=== PATIENT | female | born 1940 | race Caucasian/White ===

== ENCOUNTER 2020-08-10 16:05 | Outpatient (CLI) | payer MEDICARE, SELFPAY ==
--- NOTE | ~2020-08-10 | XR_ITS ---
EXAMINATION: XR hip RT min 3V w AP pelvis INDICATION: Right hip pain TECHNIQUE: AP view the pelvis and three views of the right hip are obtained. COMPARISON: None available FINDINGS: There is advanced osteoarthritis of both hips. No fracture is identified. Bone alignment is normal. The soft tissues are unremarkable. IMPRESSION: 1. Advanced osteoarthritis of the hips. Reviewed, dictated and finalized at location A. 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
--- NOTE | ~2020-08-10 | XR_ITS ---
EXAMINATION: XR lumbar spine 2-3V DATE: 08/10/2020 16:31 INDICATION: Low back pain TECHNIQUE: Anteroposterior and lateral views of the lumbar spine, and cone-down lateral view of the l umbosacral junction were obtained. COMPARISON: None. FINDINGS: There is dextrocurvature of the lumbar spine. No fracture is identified. The vertebral body heights are maintained. There are 4 mm of anterolisthesis of L4 on L5. Bone alignment is otherwise n ormal. There is severe loss of intervertebral disc space height throughout the lumbar spine. No fract ure is identified. Calcified atherosclerosis is noted. There is moderate to severe hip osteoarthritis . IMPRESSION: 1. Severe lumbar spondylosis without acute findings. Reviewed, dictated and finalized at location A. 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
== END 2020-08-10 16:06 | disposition home or self-care (01) ==
PROVIDERS: PCP Family Medicine; Visit Provider Physician Assistant
DX: M54.5 Low back pain (principal); M16.0 Bilateral primary osteoarthritis of hip; M47.816 Spondylosis without myelopathy or radiculopathy, lumbar region
CPT/HCPCS: 72100; 73502

== ENCOUNTER 2020-12-28 12:21 | Outpatient (CLI) | payer MEDICARE, SELFPAY ==
[2020-12-28 12:54] LABS: Basophils Percent Auto 0.3 % (0.2-1.2); Eosinophils Absolute Auto 0.1 K/mm3 (0-0.3); Eosinophils Percent Auto 1.4 % (0-4.4); Hematocrit 44.4 % (37.0-47.0); Immature Granulocyte Absolute 0.03 K/mm3 (0.00-0.031); Immature Granulocyte Percent A 0.4 % (0-0.5); Lymphocytes Absolute Auto 2.18 K/mm3 (0.9-3.2); Lymphocytes Percent Auto 31.3 % (18.3-44.2); Mean Corpuscular HGB Conc 31.5 g/dl (32-36); Mean Corpuscular Hemoglobin 27.6 pg (26-34); Mean Corpuscular Volume 87.6 fl (80-100); Monocytes Absolute Auto 0.6 K/mm3 (0.1-0.6); Monocytes Percent Auto 8.5 % (2.6-8.5); Neutrophils Absolute Auto 4.1 K/mm3 (1.3-6.7); Neutrophils Percent Auto 58.1 % (45.5-73.1); Platelet Count Result 264 k/mm3 (150-375); Red Blood Count 5.07 M/mm3 (4.2-5.4)
== END 2020-12-28 12:22 | disposition home or self-care (01) ==
PROVIDERS: PCP Family Medicine; Visit Provider Internal Medicine Gastroenterology
DX: R10.9 Unspecified abdominal pain (principal)
CPT/HCPCS: 36415; 85025

== ENCOUNTER 2021-01-10 01:26 | Day surgery (SDC) | payer MEDICARE, SELFPAY ==
[2020-12-29 14:49] VITALS: BMI 22.8
[2021-01-10 10:55] VITALS: BP 171/68; PULSE 85; RESP 16; TEMP 35.8; O2SAT 98; BMI 23.4
--- NOTE | 2021-01-10 11:18 | WPDANESEPPF ---
Anes - Initial Pre Proc Eval Procedure: Operation Date: 01/10/21 11:30 Proposed Procedures p Esophagogastroduodenoscopy - Wale Son MD Date/Time: 01/10/21 11:18 Surgeon: Wale Son MD Pre Op Diagnosis: melena Patient Data Age: 80 Gender: F Height: 1.57 m Weight: 58.1 kg Last Vital Signs Temp 35.8 C L 01/10/21 10:55 Pulse 85 01/10/21 10:55 Resp 16 01/10/21 10:55 BP 171/68 H 01/10/21 10:55 Pulse Ox 98 01/10/21 10:55 Allergies Allergy/AdvReac Type Severity Reaction Status Date / Time iron AdvReac Mild Nausea Verified 01/10/21 11:09 Home Medications Medication Instructions Recorded Confirmed Type aspirin 81 mg tablet,delayed 81 mg PO DAILY 07/07/19 08/13/20 History release lvtidiv-fbbiwcwtk-sfzu tablet tablet PO 07/07/19 08/13/20 History flaxseed oil 1,000 mg capsule 1,000 mg PO DAILY 07/07/19 08/13/20 History montelukast 10 mg tablet 10 mg PO DAILY 07/07/19 08/13/20 History multivitamin 1 tablet PO DAILY 07/07/19 08/13/20 History trazodone 50 mg tablet 50 mg PO TID 07/07/19 08/13/20 History pantoprazole 40 mg tablet,delayed 40 mg PO QAM #90 tablet 04/20/20 08/13/20 Rx release levothyroxine 100 mcg tablet 100 mcg PO DAILY #90 tablet 05/31/20 08/13/20 Rx Patient hx anesthesia problems: none Family hx anesthesia problems: none PMFSH Surgical History Surgical History H/O mastectomy Family History Family History Mother Family history of Alzheimer's disease Father Family history of lung cancer Patient's father is , Onset Age: 85 Other Family history of hypercholesterolemia No family history of cardiovascular disease No family history of hypertension Social History Social History Smoking status: Never smoker Alcohol intake: current Alcohol use details: rarely Substance use: never Substance use type: does not use Living arrangements: with family Spiritual care concerns: No Anes - Eval Final PreProcedure Day of Procedure 01/10/21 11:18 Patient weight: normal Heart: regular rate and rhythm Lungs: clear to auscultation Airway: Mallampati scale class II Neurological: alert and oriented Last oral intake: >/= 8 hours ASA classification: III Emergent: no Anesthetic plan: proceed Anesthesia type and monitoring: general GIVS and standard monitoring Informed Consent: The patient's anesthetic plan and its attendant risks and benefits were discussed with the patient/family/POA. Questions were solicited and answers provided to the satisfaction of the patient/family/POA.
[2021-01-10] MEDS: LACTATED RINGERS 1,000 ML 150 ML IV CONT (11:21)
--- NOTE | 2021-01-10 11:41 | PM.HPGS ---
History of Present Illness History of Present Illness Consent: Risks, benefits, and alternatives have been discussed and questions answered. Patient agrees to proceed with procedure. Chief complaint: melena Narrative: Shruthi Benson is a 80 year old female with melena. She has history of having a large ulcer and when last examined a few years ago it was smaller but not completely healed Review of Systems Review of Systems: All systems reviewed & are unremarkable except as noted in HPI and below PMFSH Surgical History Surgical History H/O mastectomy Family History Family History Mother Family history of Alzheimer's disease Father Family history of lung cancer Patient's father is , Onset Age: 85 Other Family history of hypercholesterolemia No family history of cardiovascular disease No family history of hypertension Social History Social History Smoking status: Never smoker Alcohol intake: current Alcohol use details: rarely Substance use: never Substance use type: does not use Living arrangements: with family Spiritual care concerns: No Meds Home Medications and Allergies Home Medications Medication Instructions Recorded Confirmed Type aspirin 81 mg tablet,delayed 81 mg PO DAILY 07/07/19 08/13/20 History release oacpxtd-vpqmvmxre-eavi tablet tablet PO 07/07/19 08/13/20 History flaxseed oil 1,000 mg capsule 1,000 mg PO DAILY 07/07/19 08/13/20 History montelukast 10 mg tablet 10 mg PO DAILY 07/07/19 08/13/20 History multivitamin 1 tablet PO DAILY 07/07/19 08/13/20 History trazodone 50 mg tablet 50 mg PO TID 07/07/19 08/13/20 History pantoprazole 40 mg tablet,delayed 40 mg PO QAM #90 tablet 04/20/20 08/13/20 Rx release levothyroxine 100 mcg tablet 100 mcg PO DAILY #90 tablet 05/31/20 08/13/20 Rx Allergies Allergy/AdvReac Type Severity Reaction Status Date / Time iron AdvReac Mild Nausea Verified 01/10/21 11:09 Vital Signs Vital Signs - 24 hr 01/10/21 10:55 Temperature 35.8 C L Pulse Rate 85 Respiratory Rate 16 Blood Pressure 171/68 H Pulse Oximetry 98 Exam Const: General: alert Orientation/consciousness: patient oriented x3 Resp: Auscultation: clear to auscultation bilaterally Cardio: Rhythm: regular rhythm GI: GI Palp: Yes Soft to palpation and No Tenderness to palpation present (GI) Neuro: General: patient oriented x3 Assessment and Plan Assessment and plan (1) Melena: Code(s): K92.1 - Melena Status: Acute Assessment and Plan: EGD with possible biopsy or dilatation or cautery.
[2021-01-10 11:55] VITALS: BP 82/54; PULSE 78; RESP 16; O2SAT 98
[2021-01-10 12:05] VITALS: BP 74/39; PULSE 74; RESP 16; O2SAT 100
[2021-01-10 12:13] VITALS: BP 118/44; PULSE 70; RESP 16; O2SAT 100
== END 2021-01-10 12:20 | disposition home or self-care (01) ==
PROVIDERS: PCP Family Medicine; Visit Provider Internal Medicine Gastroenterology
PROC: 0DJ08ZZ Inspection of Upper Intestinal Tract, Via Natural or Artificial Opening Endoscopic (ICD-10-PCS; CPT 43235; principal; 2021-01-10 11:30)
DX: K92.1 Melena (principal); K31.5 Obstruction of duodenum; K22.2 Esophageal obstruction; K21.9 Gastro-esophageal reflux disease without esophagitis; Z79.82 Long term (current) use of aspirin; E03.9 Hypothyroidism, unspecified
CPT/HCPCS: 43239; 88305; J2704; J7120

== ENCOUNTER 2022-03-28 03:45 | Outpatient (CLI) | payer MEDICARE, SELFPAY | END 2022-03-28 03:46 | disposition home or self-care (01) | LOC: ANHGOSHLAB 15:44 | PROVIDERS: PCP Family Medicine; Visit Provider Family Medicine | DX: E78.2 Mixed hyperlipidemia (principal) | CPT/HCPCS: 36415 ==

== ENCOUNTER 2022-11-16 08:59 | Outpatient (CLI) | payer MEDICARE, SELFPAY ==
[2022-11-16 12:55] LABS: Alanine Aminotransferase 18 U/L (6-35); Albumin Level 4.3 g/dL (3.5-5.1); Alkaline Phosphatase 96 U/L (38-126); Anion Gap 5 mmol/L (8-16); Aspartate Amino Transferase 51 U/L (14-36); Bilirubin,Total 0.6 mg/dL (0.2-1.3); Blood Urea Nitrogen 19 mg/dL (7-17); Calcium 9.3 mg/dL (8.4-10.2); Carbon Dioxide 30 mmol/L (22-30); Chloride 106 mmol/L (98-107); Cholesterol 236 mg/dL (0-200); Estimated Glomerular Filt Rate 60; Glucose 103 mg/dL (65-110); HDL Direct 58 mg/dL; Potassium 4.5 mmol/L (3.4-5.0); Sodium 141 mmol/L (137-145); Triglycerides 172 mg/dL (<150)
[2022-11-16 13:06] LABS: LDL Cholesterol Direct 129 mg/dL
[2022-11-16 13:39] LABS: Thyroid Stimulating Hormone Reflex 0.018 uIU/mL (0.465-4.68)
[2022-11-16 17:59] LABS: Free T4 Free Thyroxine Reflex 1.52 ng/dL (0.78-2.19)
[2022-11-16 19:47] LABS: Total Triiodothyronine (T3) 1.52 NG/ML (0.97-1.69)
== END 2022-11-16 09:00 | disposition home or self-care (01) ==
LOC: ANHGOSHLAB 09:00
PROVIDERS: PCP Family Medicine; Visit Provider Family Medicine
DX: E03.9 Hypothyroidism, unspecified (principal); E78.2 Mixed hyperlipidemia; Z13.228 Encounter for screening for other metabolic disorders
CPT/HCPCS: 36415; 80053; 80061; 84439; 84443; 84480

== ENCOUNTER 2023-05-02 13:37 | Emergency (ER) | payer MEDICARE, SELFPAY ==
[2023-05-02 13:49] VITALS: BP 149/79; PULSE 88; RESP 18; TEMP 37; O2SAT 98
--- NOTE | 2023-05-02 13:59 | ED.URI ---
HPI - URI/Sore Throat General Chief Complaint: Upper Respiratory Infection Stated Complaint: Sinus Infection Time Seen by Provider: 05/02/23 14:00 Source: patient and RN notes reviewed Mode of arrival: ambulatory Limitations: no limitations History of Present Illness HPI Narrative: 82-year-old female presents concern for 5-6 day history of sinus congestion, drainage, cough, postnasal drainage, chills, sweats. She reports she has been using Afrin intermittently. She reports her who is currently in a rehab center tested positive for COVID. MD elicited complaint: rhinorrhea and nasal congestion Related Data Home Medications Medication Instructions Recorded Confirmed aspirin 81 mg tablet,delayed 81 mg PO DAILY 07/07/19 05/02/23 release aktjjzc-omupnchfr-tljf tablet 1 tablet PO DAILY 07/07/19 05/02/23 flaxseed oil 1,000 mg capsule 1,000 mg PO DAILY 07/07/19 05/02/23 montelukast 10 mg tablet 10 mg PO DAILY 07/07/19 05/02/23 multivitamin 1 tablet PO DAILY 07/07/19 05/02/23 trazodone 50 mg tablet 50 mg PO TID 07/07/19 05/02/23 bupropion HCl 300 mg 24 hr tablet, 300 mg PO DAILY 05/02/23 05/02/23 extended release levothyroxine 75 mcg tablet 75 mcg PO DAILY 05/02/23 05/02/23 paroxetine HCl 10 mg tablet 10 mg PO DAILY 05/02/23 05/02/23 Allergies Allergy/AdvReac Type Severity Reaction Status Date / Time iron AdvReac Mild Nausea Verified 05/02/23 13:56 Review of Systems Review of Systems: CONSTITUTIONAL: Reports malaise, chills, sweats. Fever. EYES: Denies visual changes, redness, or discharge. ENT: Reports rhinorrhea, congestion CARDIOVASCULAR: Denies chest pain, palpitations, or edema. RESPIRATORY: Reports cough. Denies dyspnea. GASTROINTESTINAL: Denies abdominal pain, nausea, vomiting, diarrhea SKIN: Denies rash or itching. MUSCULOSKELETAL: Denies myalgia. NEUROLOGIC: Reports headache. All systems reviewed & are unremarkable except as noted in HPI and below PMFSH Surgical History Surgical History H/O mastectomy Family History Family History Mother Family history of Alzheimer's disease Father Family history of lung cancer Patient's father is , Onset Age: 85 Other Family history of hypercholesterolemia No family history of cardiovascular disease No family history of hypertension Social History Social History Smoking status: Never smoker Alcohol intake: current Alcohol use details: rarely Substance use: never Substance use type: does not use Lack of Transportation: No Lack of Food: Never True Current Housing: I Have Housing Concerned About Future Housing: No Difficulty Paying Gas/Electric Bills: No Difficulty Paying for Meds: No Currently Unemployed: No Education: Associate Degree Difficulty w/ Childcare or Family Care: No Living arrangements: with family Spiritual care concerns: No Comments At time of signature, agree with nursing past medical, surgical, social and family history. There is no relevant family history pertinent to the presenting complaint Exam Narrative: GENERAL: Well-appearing, well-nourished, and in no acute distress. HEAD: Normocephalic EYES: PERRLA, conjunctivae clear ENT: Nares clear, turbinates edematous and erythematous, clear discharge. Mucous membranes moist. TM pearly pickering with short light reflex bilaterally; no tragal tenderness. Oropharynx not erythematous without lesions. Tonsils not enlarged and without exudate, no drooling, no hoarseness, no trismus, uvula midline. NECK: Supple. No lymphadenopathy CHEST: Clear to auscultation, breath sounds equal. No wheezing, rhonchi, rales, or stridor. No respiratory distress, speaks in full sentences. HEART: Regular rate and rhythm. No murmur heard. SKIN: Warm, dry, no rash. NEURO: Alert and oriented x
== END 2023-05-02 14:24 | disposition home or self-care (01) ==
PROVIDERS: Emergency Provider Nurse Practitioner; PCP Family Medicine
DX: J06.9 Acute upper respiratory infection, unspecified (principal); Z79.899 Other long term (current) drug therapy; Z79.82 Long term (current) use of aspirin; Z20.822 Contact with and (suspected) exposure to COVID-19
CPT/HCPCS: 36415; 84439; 84443; 84480; 87426; 87804; 99213; C9803; G0463

== ENCOUNTER 2023-05-02 14:29 | Outpatient (CLI) | payer MEDICARE, SELFPAY ==
[2023-05-02 20:14] LABS: Free T4 Free Thyroxine Reflex 0.94 ng/dL (0.78-2.19)
[2023-05-02 21:27] LABS: Total Triiodothyronine (T3) 0.99 NG/ML (0.97-1.69)
== END 2023-05-02 14:30 | disposition home or self-care (01) ==
LOC: ANHGOSHLAB 14:31
PROVIDERS: PCP Family Medicine; Visit Provider Family Medicine
DX: E03.9 Hypothyroidism, unspecified (principal); Z13.29 Encounter for screening for other suspected endocrine disorder
CPT/HCPCS: 36415; 84439; 84443; 84480

== ENCOUNTER 2023-08-09 14:22 | Outpatient (CLI) | payer MEDICARE, SELFPAY ==
[2023-08-09 16:37] LABS: Thyroid Stimulating Hormone Reflex < 0.015 uIU/mL (0.465-4.68)
[2023-08-09 18:51] LABS: Total Triiodothyronine (T3) 1.53 NG/ML (0.97-1.69)
== END 2023-08-09 14:23 | disposition home or self-care (01) ==
LOC: ANHGOSHLAB 14:24
PROVIDERS: PCP Family Medicine; Visit Provider Family Medicine
DX: E03.9 Hypothyroidism, unspecified (principal)
CPT/HCPCS: 36415; 84439; 84443; 84480

== ENCOUNTER 2023-12-26 08:36 | Outpatient (CLI) | payer MEDICARE, SELFPAY ==
[2023-12-26 13:05] LABS: Basophils Percent Auto 0.5 % (0.2-1.2); Eosinophils Absolute Auto 0.2 K/mm3 (0-0.3); Eosinophils Percent Auto 3.5 % (0-4.4); Hematocrit 42.2 % (37.0-47.0); Immature Granulocyte Absolute 0.01 K/mm3 (0.00-0.031); Immature Granulocyte Percent A 0.2 % (0-0.5); Lymphocytes Absolute Auto 3.07 K/mm3 (0.9-3.2); Lymphocytes Percent Auto 47.1 % (18.3-44.2); Mean Corpuscular HGB Conc 30.8 g/dl (32-36); Mean Corpuscular Hemoglobin 27.3 pg (26-34); Mean Corpuscular Volume 88.7 fl (80-100); Mean Platelet Volume 11.4 fl (7.4-10.4); Monocytes Absolute Auto 0.6 K/mm3 (0.1-0.6); Neutrophils Absolute Auto 2.6 K/mm3 (1.3-6.7); Neutrophils Percent Auto 39.7 % (45.5-73.1); Platelet Count Result 300 k/mm3 (150-375); Red Blood Count 4.76 M/mm3 (4.2-5.4); Red Cell Distribution Width 14.4 % (11.5-14.5); White Blood Count 6.5 K/mm3 (4.5-10.0)
[2023-12-26 13:11] LABS: Alanine Aminotransferase 20 U/L (6-35); Albumin Level 4.3 g/dL (3.5-5.1); Alkaline Phosphatase 116 U/L (38-126); Anion Gap 7 mmol/L (4-12); Aspartate Amino Transferase 71 U/L (14-36); Bilirubin,Total 0.6 mg/dL (0.2-1.3); Blood Urea Nitrogen 17 mg/dL (7-17); Calcium 9.6 mg/dL (8.4-10.2); Carbon Dioxide 29 mmol/L (22-30); Chloride 104 mmol/L (98-107); Cholesterol 217 mg/dL (0-200); Estimated Glomerular Filt Rate > 60; Glucose 103 mg/dL (65-110); HDL Direct 55 mg/dL; Potassium 4.8 mmol/L (3.4-5.0); Sodium 140 mmol/L (137-145); Triglycerides 173 mg/dL (<150)
[2023-12-26 13:22] LABS: LDL Cholesterol Direct 128 mg/dL
[2023-12-26 13:37] LABS: Free T4 Free Thyroxine 1.82 ng/mL (0.78-2.19); Vitamin D 25 Hydroxy 50.4 ng/mL
[2023-12-26 13:39] LABS: Thyroid Stimulating Hormone < 0.015 uIU/mL (0.465-4.680)
== END 2023-12-26 08:37 | disposition home or self-care (01) ==
PROVIDERS: PCP Family Medicine; Visit Provider Family Medicine
DX: E03.9 Hypothyroidism, unspecified (principal); R53.83 Other fatigue; E78.2 Mixed hyperlipidemia; E55.9 Vitamin D deficiency, unspecified; Z13.228 Encounter for screening for other metabolic disorders
CPT/HCPCS: 36415; 80053; 80061; 82306; 84439; 84443; 85025

== ENCOUNTER 2024-06-19 15:27 | Outpatient (CLI) | payer MEDICARE, SELFPAY ==
[2024-06-19 21:05] LABS: Thyroid Stimulating Hormone 0.646 uIU/mL (0.465-4.680)
== END 2024-06-19 15:28 | disposition home or self-care (01) ==
LOC: ANHGOSHLAB 15:28
PROVIDERS: PCP Family Medicine; Visit Provider Family Medicine
DX: E03.9 Hypothyroidism, unspecified (principal)
CPT/HCPCS: 36415; 84439; 84443

== ENCOUNTER 2025-01-01 10:03 | Outpatient (CLI) | payer MEDICARE, SELFPAY ==
--- OUTSIDE RECORDS SUMMARY | 2025-01-01 10:11 | XMS_ITS | Clinical Summary ---
Author Organization [facility] Address [address] [place] [address] Care Team Providers Care Flat Spring Assembler Name Role Phone Liss Castellano MD Primary Care Provider [phone] Allergies No known active allergies Medications HYDROcodone-a cetaminophen (NORCO) 7.5-325 mg per tablet 0 01/23/20 19 Active levothyroxine (SYNTHROID) 100 mcg tablet 07/31/2016Synthroid, po solid 100 mcg TabletPOdailyCurrent Medication 07/31/[address] (Aciphex) 20 mg EC tablet 07/31/2016Aciphex, po solid 20 mg Tablet, delayed release (enteric coated)POdailyCurrent Medication 07/31/19 17 Active raloxifene (EVISTA) 60 mg tablet 07/31/2016Evista, po solid 60 mg TabletPOdaily as directedCurrent Medication 07/31/19 17 Active Active Problems Problem Noted Date Diagnosed Date History of colon cancer 12/09/2018 History of breast cancer 08/02/2018 Immunizations Immunization Administration Dates Next Due Influenza, Unspecified 02/09/2019,07/31/2016 ZOSTER LIVE 07/31/2016,08/02/2015 Social History Tobacco Use Types Packs/Day Years Used Date Smoking Tobacco: Never Smokeless Tobacco: Never Personal Safety Answer Date Recorded Getting School Help Needed Not on file 08/25 Comments Unknown Sex and Gender Information Value Date Recorded Sex Assigned at Not on file 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 Gender Identity Not on file Sexual Orientation Not on file Obstetrics History Last Filed Vital Signs Vital Sign Reading Time Taken Comments Blood Pressure 158/74 03/03/2020 1:07 PM CDT Pulse 94 03/03/2020 1:07 PM CDT Temperature 36.7 C (98.1 F) 03/03/2020 1:07 PM CDT Respiratory Rate 16 03/03/2020 1:07 PM CDT Oxygen Saturation 96% 03/03/2020 1:07 PM CDT Inhaled Oxygen Concentration - - Weight 57.5 kg (126 lb 12.8 oz) 03/03/2020 1:07 PM CDT Height 157.5 cm (5' 2) 03/03/2020 1:07 PM CDT Body Mass Index 23.19 03/03/2020 1:07 PM CDT Plan of Treatment Not on file Insurance MEDICARE [facility] Care Teams Flat Spring Assembler Relationship Specialty Start Date End Date Liss Castellano MD [address] [place] [address] PCP - General 08/06/17
--- OUTSIDE RECORDS SUMMARY | 2025-01-01 10:11 | XMS_ITS | Patient Health Record ---
Author Organization [facility] Address [address] [facility] [address] [facility] [address] [place] [address] Care Team Providers Care Iso Coordinator Name Role Phone KathyJavier Unavailable [phone] Reason For Referral No Information Plan Of Treatment No Information
--- OUTSIDE RECORDS SUMMARY | 2025-01-01 10:11 | XMS_ITS | Referral Summary ---
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
--- OUTSIDE RECORDS SUMMARY | 2025-01-01 10:11 | XMS_ITS | Continuity of Care Document ---
Author Organization [facility] [place] [address] [place] [address] Phone Care Team Providers Care Fisheries Inspector Name Role Phone Urrutia OD, Chauncey Unavailable Unavailable Procedures Procedure Date Post-op Follow-up Visit After Cataract Laser Surgery Office/outpatient Visit, Est Contact Lens Hydrophilic, Spherical Sales Tax Cntct Lens Hydrophilic Toric Or Prism Ba llast Clix Software - Medical Office/outpatient Visit, Est Contact Lens Check CL Replacement - Vistakon Disp W/BW Soft [facility] Medical Contact Lens Check Contact Lens Check No Charge Glasses Check Post-op Follow-up Visit Post-op Follow-up Visit Post-op Follow-up Visit Remove Cataract, Insert Lens PreOp Assessment Performed Presbyopia Correcting IOL Office/outpatient Visit, Est Optic Nerve Head Eval Script Printed/Phoned Pt Requ Or Pharm N ot Availab IOLMaster Cataract Kit SEC MV [facility] Medical Eye Exam & Treatment Refraction Progressive Lens, Hi Index Frames Deluxe Tint Photochromatic, Hi Index Nov-02-200 7 Anti-reflective Coating Tax - Medical Office/outpatient Visit, Est Refraction Advance Directives Directive Yes / No Effective Date File Name No Information Encounters Encounter Description Practice Location Reason(s) For Visit Diagnoses Date Provider Providers Copied on Encounter [facility], [address] [place] [address] [address], [place], [place], [id number], tel:[phone] [facility] No Information 8-201 0 Urrutia OD Chauncey. [address], [place], [address], [place]. tel:[phone] [facility], [address] [place] [address] [address], [place], [place], [id number], tel:[phone] NovFormerly [facility] No Information Mar-2 6-201 0 Jessica Galarza. [address], [place], [address], [place]. tel:[phone] Referring Provider: Ramila [address], [place], [place], [facility]. tel:[phone] Office/outpat ient Visit, Est [facility], [address] [place] [address] [address], [place], [place], [id number], tel:[phone] [facility] No Information Mar-2 0-201 0 Jessica Galarza. [address], [place], [address], [place]. tel:[phone] Referring Provider: Ram[address], [place], [address]. tel:[phone] [facility], [address] [place] [address] [address], [place], [place], [id number], tel:[phone] [facility] No Information 3-201 0 Urrutia OD Chauncey. [address], [place], [facility], [place]. tel:[phone] [facility], [address], [place], [place], [address], [place] tel:[phone] SEC [facility] No Information Feb-0 9-201 0 Urrutia OD Chauncey. [address], [place], [facility], [place]. tel:[phone] Office/outpat ient Visit, Est [facility], [address] [place] [address] [address], [place], [place], [id number], [place] tel:[phone] SEC [facility] No Information 4-201 0 Doisy Edward. [address], [place], [facility], . tel:[phone] [facility], [address] [place] [address] [address], [place], [place], [address], [place] tel:[phone] SEC [facility] No Information Oct-0 2-200 9 Urrutia OD Chauncey. [address], [place], [facility], [place]. tel:[phone] [facility], [address] [place] [address] [address], [place], [place], [address], [place] tel:[phone] SEC [facility] No Information Sep-1 8-200 9 Urrutia OD Chauncey. [address] , [address], [place], [facility], [place]. tel:[phone] [facility], [address] [place] [address] [address], [place], [place], [address], [place] tel:[phone] SEC [facility] No Information Sep-1 1-200 9 Urrutia OD Chuancey. [address] , [address], [place], [facility], [place]. tel:[phone] [facility], [address], [place], [place], [address], [place] tel:[phone] SEC [facility] No Information Sep-0 4-200 9 Urrutia OD Chauncey. [address] , [address], [place], [facility], [place]. tel:[phone] [facility], [address], [place], [place], [address], [place] tel:[phone] SEC [facility] No Information Aug-2 8-200 9 Urrutia OD Chauncey. [address] , [address], [place], [facility], [place]. tel:[phone] [facility], [address] [place] [address] [address], [place], [place], [address], [place] tel:[phone] [facility] [place] No Information Aug-2 1-200 9 Doisy Edward. [address] , [address], [place], [facility], [place]. tel:[phone] [facility], [address] [place] [address] [address], [place], [place], [address], [place] tel:[phone] SEC [facility] No Information Aug-0 7-200 9 Doisy Edward. [address] , [address], [place], [facility], [place]. tel:[phone] [facility], [address] [place] [address] [address], [place], [place], [address], [place] tel:[phone] NovFormerly [facility] No Information Aug-0 6-200 9 Doisy Edward. [address] , [address], [place], [facility], [place]. tel:[phone] Office/outpat ient Visit, Est [facility], [address], [place], [place], [address], [place] tel:[phone] [facility] No Information 6 9 Jessica Galarza. [address], [place], [facility], . tel:[phone] Referring Provider: Geovanni Streeter, [address], [place], [facility]. tel:[phone] [facility], [address], [place], [place], [address], [place] tel:[phone] [facility] No Information 200 8 Jessica Galarza. [facility], [address], [place], [facility], [place]. tel:[phone] [facility], [address] [place] [address] [address], [place], [place], [address], tel:[phone] [place] [address] No Information 7 [employer] [facility] . [address] [facility], [address], [place], [place], [address], [place]. tel:[phone] Referring Provider: Geovanni Streeter, [address], [place], [facility]. tel:[phone] sulting Provider: Brandy Gomez, [address] [place], [place], [facility]. tel:[phone] Office/outpat ient Visit, [facility], [address], [place], [place], [address], [place] tel:[phone] [facility] No Information 200 7 Jessica Galarza. [address] [place], [place] [address], [place], [facility], [place]. tel:[phone] Family History Family Member Type Diagnosis Age [...]
[2025-01-01 13:02] LABS: Hematocrit 42.8 % (37.0-47.0); Hemoglobin 13.6 g/dL (12.0-15.0); Mean Corpuscular HGB Conc 31.8 g/dl (32-36); Mean Corpuscular Hemoglobin 28.7 pg (26-34); Mean Corpuscular Volume 90.3 fl (80-100); Platelet Count Result 337 k/mm3 (150-375); Red Blood Count 4.74 M/mm3 (4.2-5.4); White Blood Count 5.6 K/mm3 (4.5-10.0)
[2025-01-01 13:18] LABS: Alanine Aminotransferase 53 U/L (6-35); Albumin Level 4.2 g/dL (3.5-5.1); Alkaline Phosphatase 269 U/L (38-126); Anion Gap 8 mmol/L (4-12); Aspartate Amino Transferase 63 U/L (14-36); Bilirubin,Total 0.5 mg/dL (0.2-1.3); Blood Urea Nitrogen 13 mg/dL (7-17); Calcium 9.6 mg/dL (8.4-10.2); Carbon Dioxide 28 mmol/L (22-30); Chloride 105 mmol/L (98-107); Cholesterol 228 mg/dL (0-200); Estimated Glomerular Filt Rate > 60; Glucose 111 mg/dL (65-110); HDL Direct 47 mg/dL; Potassium 4.6 mmol/L (3.4-5.0); Sodium 141 mmol/L (137-145); Total Protein 7.5 g/dL (6.3-8.2); Triglycerides 147 mg/dL (<150)
[2025-01-01 13:29] LABS: Free T4 Free Thyroxine 0.75 ng/dL (0.78-2.19)
[2025-01-01 13:52] LABS: Thyroid Stimulating Hormone 4.410 uIU/mL (0.465-4.680)
[2025-01-01 14:16] LABS: Hemoglobin A1C 5.7 % (<5.7)
[2025-01-07 18:07] LABS: 1,25-Dihydroxy, Vitamin D-2 <10 pg/mL (.); 1,25-Dihydroxy, Vitamin D-3 77 pg/mL (.); Total 1,25-Dihydroxy,Vitamin D 81 pg/mL (.)
== END 2025-01-01 10:04 | disposition home or self-care (01) ==
LOC: ANHGOSHLAB 10:06
PROVIDERS: PCP Family Medicine; Visit Provider Family Medicine
DX: E78.2 Mixed hyperlipidemia (principal); E03.9 Hypothyroidism, unspecified; E55.9 Vitamin D deficiency, unspecified; R73.01 Impaired fasting glucose; Z79.899 Other long term (current) drug therapy
CPT/HCPCS: 36415; 80053; 80061; 82652; 83036; 84439; 84443; 85027

== ENCOUNTER 2025-02-06 10:13 | Outpatient (CLI) | payer MEDICARE, SELFPAY ==
--- OUTSIDE RECORDS SUMMARY | 2010-04-28 03:00 | XMS_ITS | Continuity of Care Document ---
Author Organization [facility] Address [address] [facility] [address] [place] [address] Phone Care Team Providers Care Spin Tank Tender Name Role Phone Urrutia OD, Chauncey Unavailable Unavailable Procedures Procedure Date Post-op Follow-up Visit After Cataract Laser Surgery Office/outpatient Visit, Est Contact Lens Hydrophilic, Spherical Sales Tax Cntct Lens Hydrophilic Toric Or Prism Ba llast [employer] - Medical Office/outpatient Visit, Est Contact Lens Check CL Replacement - Vistakon Disp W/BW Soft [facility] Medical Contact Lens Check Contact Lens Check No Charge Glasses Check Post-op Follow-up Visit Post-op Follow-up Visit Post-op Follow-up Visit Remove Cataract, Insert Lens PreOp Assessment Performed Presbyopia Correcting IOL Office/outpatient Visit, Est Optic Nerve Head Eval Script Printed/Phoned Pt Requ Or Pharm N ot Availab IOLMaster Cataract Kit SEC [facility] Eye Exam & Treatment Refraction Progressive Lens, Hi Index Frames Deluxe Tint Photochromatic, Hi Index Nov-02-200 7 Anti-reflective Coating Tax - Medical Office/outpatient Visit, Est Refraction Advance Directives Directive Yes / No Effective Date File Name No Information Encounters Encounter Description Practice Location Reason(s) For Visit Diagnoses Date Provider Providers Copied on Encounter [facility], [address] [place] [address] [address], [place], [place], [address], tel:[phone] [facility] No Information 8-201 0 Urrutia OD Chauncey. [address] [facility], [place], [address], [place]. tel:[phone] [facility], [address] [place] [address] [address], [place], [place], [address], tel:[phone] [facility] No Information Mar-2 6-201 0 Jessica Galarza. [address] [facility] [address], [place], [address], [place]. tel:[phone] Referring Provider: Ram[address], [place], [place], [facility]. tel:[phone] Office/outpat ient Visit, Est [facility], [address] [place] [address] [address], [place], [place], [address], tel:[phone] [facility] No Information Mar-2 0-201 0 Jessica Galarza. [address], [place], [address], [place]. tel:[phone] Referring Provider: Ramila [address], [place], [address]. tel:[phone] [facility], [address] [place] [address] [address], [place], [place], [address], tel:[phone] [facility] No Information 3-201 0 Urrutia OD Chauncey. [address], [place], [facility], [place]. tel:[phone] [facility], [address], [place], [place], [address], [place] tel:[phone] SEC [facility] No Information Feb-0 9-201 0 Urrutia OD Chauncey. [address], [place], [facility], [place]. tel:[phone] Office/outpat ient Visit, Est [facility], [address] [place] [address] [address], [place], [place], [address], [place] tel:[phone] SEC [facility] No Information 4-201 0 Doisy Edward. [address] , [address], [place], [facility], . tel:[phone] [facility], [address] [place] [address] [address], [place], [place], [address], [place] tel:[phone] SEC [facility] No Information Oct-0 2-200 9 Urrutia OD Chauncey. [address] , [address], [place], [facility], [place]. tel:[phone] [facility], [address] [place] [address] [address], [place], [place], [address], [place] tel:[phone] SEC [facility] No Information Sep-1 8-200 9 Urrutia OD Chauncey. [address] , [address], [place], [facility], [place]. tel:[phone] [facility], [address] [place] [address] [address], [place], [place], [address], [place] tel:[phone] [facility] No Information Sep-1 1-200 9 Urrutia OD Chauncey. [address] , [address], [place], [facility], [place]. tel:[phone] [facility], [address], [place], [place], [address], [place] tel:[phone] [facility] No Information Sep-0 4-200 9 Urrutia OD Chauncey. [address], [place], [facility], [place]. tel:[phone] [facility], [address], [place], [place], [address], [place] tel:[phone] SEC [facility] No Information Aug-2 8-200 9 Urrutia OD Chauncey. [address], [place], [facility], [place]. tel:[phone] [facility], [address] [place] [address] [address], [place], [place], [address], [place] tel:[phone] [facility] [place] No Information Aug-2 1-200 9 Doisy Edward. [address] , [address], [place], [facility], [place]. tel:[phone] [facility], [address] [place] [address] [address], [place], [place], [address], [place] tel:[phone] SEC [facility] No Information Aug-0 7-200 9 Doisy Edward. [address] , [address], [place], [facility], [place]. tel:[phone] [facility], [address] [place] [address] [address], [place], [place], [address], [place] tel:[phone] [facility] No Information Aug-0 6-200 9 Doisy Edward. [address], [place], [facility], [place]. tel:[phone] Office/outpat ient Visit, Est [facility], [address], [place], [place], [address], [place] tel:[phone] [facility] No Information 6 9 Jessica Galarza. [address], [place], [facility], . tel:[phone] Referring Provider: Geovanni Streeter, [address] [facility], [place], [facility]. tel:[phone] [facility], [address], [place], [place], [address], [place] tel:[phone] [facility] No Information 200 8 Jessica Galarza. [facility] [address], [place], [facility], [place]. tel:[phone] [facility], [address] [place] [address] [address], [place], [place], [address], tel:[phone] [place] [address] No Information 7 [employer] [facility] . [address] [facility], [address], [place], [place], [address], [place]. tel:[phone] Referring Provider: Geovanni Streeter, [address] [facility], [place], [facility]. tel:[phone] sulting Provider: Brandy Gomez, [address] [place], [place], [facility]. tel:[phone] Office/outpat ient Visit, [facility], [address], [place], [place], [address], [place] tel:[phone] [facility] No Information 200 7 Jessica Galarza. [address] [place], [place] [address], [address], [place], [facility], [place]. tel:[phone] Family History Family Member Type Diagnosis Age At Onset No Information Payers Payer name Insurance type Covered republican ID Authoriza tion(s) No Information Social History [...]
--- OUTSIDE RECORDS SUMMARY | 2025-02-06 10:17 | XMS_ITS | Clinical Summary ---
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
--- OUTSIDE RECORDS SUMMARY | 2025-02-06 10:17 | XMS_ITS | Patient Health Record ---
Author Organization [facility] Address [address] [facility] [address] [facility] [address] [place] [address] Care Team Providers Care Editorial Assistant Name Role Phone KathyJavier Unavailable [phone] Reason For Referral No Information Plan Of Treatment No Information
[2025-02-06 19:07] LABS: Alanine Aminotransferase 74 U/L (6-35); Albumin Level 4.3 g/dL (3.5-5.1); Alkaline Phosphatase 245 U/L (38-126); Aspartate Amino Transferase 63 U/L (14-36); Bilirubin,Total 0.6 mg/dL (0.2-1.3); Total Protein 7.3 g/dL (6.3-8.2)
== END 2025-02-06 10:14 | disposition home or self-care (01) ==
PROVIDERS: PCP Family Medicine; Visit Provider Family Medicine
DX: R74.01 Elevation of levels of liver transaminase levels (principal)
CPT/HCPCS: 36415; 80076

== ENCOUNTER 2025-03-06 11:18 | Outpatient (CLI) | payer MEDICARE, SELFPAY ==
--- NOTE | ~2025-03-06 | US_ITS ---
ULTRASOUND ABDOMEN LIMITED (RIGHT UPPER QUADRANT) Clinical History: R74.01 - Elevation of levels of liver transaminase levels Comparison: None Technique: Right upper quadrant sonography Findings: Liver: Nodular surface. Normal size. Coarse echotexture. No intrahepatic biliary ductal dilatation. Normal hepatopedal flow main portal vein. Common Duct: 11 mm. Gallbladder: Stones. No wall thickening. No pericholecystic fluid. Negative sonographic Munguia's sign per technologist report. Pancreas: Mostly obscured by bowel gas. IMPRESSION: 1. Common bile duct dilated at 11 mm. Possibly merely age-related but recommend correlation with LFTs to exclude choledocholithiasis. 2. Cirrhosis. No discrete hepatic mass identified. 3. Gallstones. No evidence of cholecystitis. Reviewed, dictated and finalized at location R. IMPRESSION: 1. Common bile duct dilated at 11 mm. Possibly merely age-related but recommen d correlation with LFTs to exclude choledocholithiasis. 2. Cirrhosis. No discrete hepatic mass identified. 3. Gallstones. No evidence of cholecystitis.
== END 2025-03-06 11:19 | disposition home or self-care (01) ==
PROVIDERS: PCP Family Medicine; Visit Provider Family Medicine
DX: K83.8 Other specified diseases of biliary tract (principal); K74.60 Unspecified cirrhosis of liver; K85.10 Biliary acute pancreatitis without necrosis or infection; R74.01 Elevation of levels of liver transaminase levels
CPT/HCPCS: 76705

== ENCOUNTER 2025-03-19 10:00 | Outpatient (CLI) | payer MEDICARE, SELFPAY ==
[2025-03-19 11:22] LABS: Alanine Aminotransferase 96 U/L (6-35); Albumin Level 3.5 g/dL (3.5-5.1); Alkaline Phosphatase 537 U/L (38-126); Aspartate Amino Transferase 40 U/L (14-36); Bilirubin,Total 2.0 mg/dL (0.2-1.3); Total Protein 7.1 g/dL (6.3-8.2)
== END 2025-03-19 10:01 | disposition home or self-care (01) ==
LOC: ANHGOSHLAB 10:01
PROVIDERS: PCP Family Medicine; Visit Provider Family Medicine
DX: R74.01 Elevation of levels of liver transaminase levels (principal)
CPT/HCPCS: 36415; 80076

== ENCOUNTER 2025-03-24 14:42 | Outpatient (CLI) | payer MEDICARE, SELFPAY ==
--- NOTE | 2025-03-24 15:17 | ECG_ITS ---
Test Date: 2025-03-24 15:55:34 Measurements Intervals [place] Rate: 75 P: 73 IN: 150 QRS: -22 QRSD: 128 T: 42 QT: 421 QTc: 470 Interpretive Statements SINUS RHYTHM POSSIBLE LEFT ATRIAL ENLARGEMENT RIGHT BUNDLE BRANCH BLOCK BASELINE ARTIFACT- I, II, III, AVR, AVL, AVF, V4-V6 ABNORMAL ECG No previous ECG available for comparison Electronically Signed On 03-24-2025 16:58:04 CDT by Florentin Verduzco D.O.
[2025-03-24 16:32] LABS: Hematocrit 39.0 % (37.0-47.0); Hemoglobin 12.2 g/dL (12.0-15.0); Mean Corpuscular HGB Conc 31.3 g/dl (32-36); Mean Corpuscular Hemoglobin 27.7 pg (26-34); Mean Corpuscular Volume 88.4 fl (80-100); Platelet Count Result 396 k/mm3 (150-375); Red Blood Count 4.41 M/mm3 (4.2-5.4); White Blood Count 8.3 K/mm3 (4.5-10.0)
[2025-03-24 16:40] LABS: Iron 50 ug/dL (37-170)
--- OUTSIDE RECORDS SUMMARY | 2025-03-24 16:43 | XMS_ITS | Clinical Summary ---
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
[2025-03-24 16:44] LABS: Alanine Aminotransferase 40 U/L (6-35); Albumin Level 3.7 g/dL (3.5-5.1); Alkaline Phosphatase 311 U/L (38-126); Anion Gap 10 mmol/L (4-12); Aspartate Amino Transferase 30 U/L (14-36); Bilirubin,Total 1.1 mg/dL (0.2-1.3); Blood Urea Nitrogen 10 mg/dL (7-17); Calcium 9.2 mg/dL (8.4-10.2); Carbon Dioxide 25 mmol/L (22-30); Chloride 100 mmol/L (98-107); Creatine Kinase 30 U/L (30-135); Estimated Glomerular Filt Rate > 60; Glucose 128 mg/dL (65-110); Potassium 3.4 mmol/L (3.4-5.0); Sodium 135 mmol/L (137-145); Total Protein 7.0 g/dL (6.3-8.2)
[2025-03-24 16:51] LABS: Percent Iron Saturation 16 % (20-50)
[2025-03-24 16:52] LABS: INR 1.0; Prothrombin Time 13.2 Seconds (11.1-14.7)
[2025-03-24 16:53] LABS: Immunoglobulin G 958 mg/dL (700-1600)
[2025-03-24 17:01] LABS: Hepatitis B Surface Antigen Negative (Negative)
[2025-03-24 17:07] LABS: HAV RESULT Negative (Negative); Hepatitis B Core IgM Result Negative (Negative)
[2025-03-24 17:17] LABS: Ferritin 113.00 ng/mL (11.1-264)
[2025-03-25 08:09] LABS: GGT 336 IU/L (0-60)
[2025-03-26 14:08] LABS: ANA by IFA Rfx Titer/Pattern Positive (.); ANA by IFA Rfx YES YES
[2025-03-27 07:10] LABS: ALT (SGPT) P5P 37 IU/L (0-40); AST (SGOT) P5P 19 IU/L (0-40); Alpha 2-Macroglobulins, Qn 153 mg/dL (110-276); Bilirubin, Total 0.9 mg/dL (0.0-1.2); Cholesterol, Total 223 mg/dL (100-199); GGT 347 IU/L (0-60); Glucose 120 mg/dL (70-99); Triglycerides 154 mg/dL (0-149)
== END 2025-03-24 14:43 | disposition home or self-care (01) ==
PROVIDERS: PCP Family Medicine; Visit Provider Nurse Practitioner
DX: I49.9 Cardiac arrhythmia, unspecified (principal); I45.10 Unspecified right bundle-branch block; R94.31 Abnormal electrocardiogram [ECG] [EKG]; R74.8 Abnormal levels of other serum enzymes; K21.9 Gastro-esophageal reflux disease without esophagitis; K44.9 Diaphragmatic hernia without obstruction or gangrene; R74.01 Elevation of levels of liver transaminase levels
CPT/HCPCS: 36415; 80053; 80074; 82103; 82172; 82247; 82248; 82390; 82465; 82550; 82728; 82784; 82947; 82977; 83010; 83540; 83550; 83883; 84450; 84460; 84478; 85027; 85610; 86015; 86038; 86364; 86376; 86381; 93005

== ENCOUNTER 2025-04-24 06:47 | Outpatient (CLI) | payer MEDICARE, SELFPAY ==
--- OUTSIDE RECORDS SUMMARY | 2010-04-28 02:00 | XMS_ITS | Continuity of Care Document ---
Author Organization [facility] Address [address] [facility] [address] [place] [address] Phone Care Team Providers Care Boat Rigger Name Role Phone Urrutia OD, Chauncey Unavailable Unavailable Procedures Procedure Date Post-op Follow-up Visit After Cataract Laser Surgery Office/outpatient Visit, Est Contact Lens Hydrophilic, Spherical Sales Tax Cntct Lens Hydrophilic Toric Or Prism Ba llast [facility] - Medical Office/outpatient Visit, Est Contact Lens Check CL Replacement - Vistakon Disp W/BW Soft [facility] Medical Contact Lens Check Contact Lens Check No Charge Glasses Check Post-op Follow-up Visit Post-op Follow-up Visit Post-op Follow-up Visit Remove Cataract, Insert Lens PreOp Assessment Performed Presbyopia Correcting IOL Office/outpatient Visit, Est Optic Nerve Head Eval Script Printed/Phoned Pt Requ Or Pharm N ot Availab IOLMaster Cataract Kit SEC [facility] Eye Exam & Treatment Refraction Progressive Lens, Hi Index Frames Deluxe Tint Photochromatic, Hi Index Nov-02-200 7 Anti-reflective Coating Tax - Medical Office/outpatient Visit, Est Refraction Advance Directives Directive Yes / No Effective Date File Name No Information Encounters Encounter Description Practice Location Reason(s) For Visit Diagnoses Date Provider Providers Copied on Encounter [facility], [id number] [place] [address] [address], [place], [place], [address], tel:[phone] [facility] No Information 8-201 0 Urrutia OD Chauncey. [address], [place], [address], [place]. tel:[phone] [facility], [address] [place] [address] [address], [place], [place], [address], tel:[phone] [facility] No Information Mar-2 6-201 0 Jessica Galarza. [address], [place], [address], [place]. tel:[phone] Referring Provider: Ram[address], [place], [place], [facility]. tel:[phone] Office/outpat ient Visit, Est [facility], [address] [place] [address] [address], [place], [place], [address], tel:[phone] [facility] No Information Mar-2 0-201 0 Jessica Galarza. [address], [place], [address], [place]. tel:[phone] Referring Provider: Ramila [address], [place], [address]. tel:[phone] [facility], [address] [place] [address] [address], [place], [place], [address], tel:[phone] [facility] No Information 3-201 0 Urrutia OD Chauncey. [address], [place], [facility], [place]. tel:[phone] [facility], [address], [place], [place], [address], [place] tel:[phone] [facility] No Information Feb-0 9-201 0 Urrutia OD Chauncey. [address], [place], [facility], [place]. tel:[phone] Office/outpat ient Visit, Est [facility], [address] [place] [address] [address], [place], [place], [address], [place] tel:[phone] [facility] No Information 4-201 0 Doisy Edward. [address], [place], [facility], . tel:[phone] [facility], [address] [place] [address] [address], [place], [place], [address], [place] tel:[phone] [facility] No Information Oct-0 2-200 9 Urrutia OD Chauncey. [address] , [address], [place], [facility], [place]. tel:[phone] [facility], [address] [place] [address] [address], [place], [place], [address], [place] tel:[phone] [facility] No Information Sep-1 8-200 9 Urrutia OD Chauncey. [address] , [address], [place], [facility], [place]. tel:[phone] [facility], [address] [place] [address] [address], [place], [place], [address], [place] tel:[phone] [facility] No Information Sep-1 1-200 9 Urrutia OD Chauncey. [address] , [address], [place], [facility], [place]. tel:[phone] [facility], [address], [place], [place], [address], [place] tel:[phone] [facility] No Information Sep-0 4-200 9 Urrutia OD Chauncey. [address] , [address], [place], [facility], [place]. tel:[phone] [facility], [address], [place], [place], [address], [place] tel:[phone] [facility] No Information Aug-2 8-200 9 Urrutia OD Chauncey. [address] , [address], [place], [facility], [place]. tel:[phone] [facility], [address] [place] [address] [address], [place], [place], [address], [place] tel:[phone] [facility] No Information Aug-2 1-200 9 Doisy Edward. [address] , [address], [place], [facility], [place]. tel:[phone] [facility], [address] [place] [address] [address], [place], [place], [address], [place] tel:[phone] SEC [facility] No Information Aug-0 7-200 9 Doisy Edward. [address] , [address], [place], [facility], [place]. tel:[phone] [facility], [address] [place] [address] [address], [place], [place], [address], [place] tel:[phone] [facility] No Information Aug-0 6-200 9 Doisy Edward. [address] , [address], [place], [facility], [place]. tel:[phone] Office/outpat ient Visit, Est [facility], [address], [place], [place], [address], [place] tel:[phone] [facility] No Information 6 9 Jessica Galarza. [address], [place], [facility], . tel:[phone] Referring Provider: Geovanni Streeter, [address], [place], [facility]. tel:[phone] [facility], [address], [place], [place], [address], [place] tel:[phone] [facility] No Information 200 8 Jessica Galarza. [facility], [place], [facility], [place]. tel:[phone] [facility], [address] [place] [address] [address], [place], [place], [address], tel:[phone] [place] [address] No Information 7 [employer] Shop [facility] . [address] [facility], [address], [place], [place], [address], [place]. tel:[phone] Referring Provider: Geovanni Streeter, [address], [place], [facility]. tel:[phone] sulting Provider: Brandy Gomez, [address] [place], [place], [facility]. tel:[phone] Office/outpat ient Visit, [facility], [address], [place], [place], [address], [place] tel:[phone] [facility] No Information 200 7 Jessica Galarza. [address] [place], [place] [address], [place], [facility], [place]. tel:[phone] Family History Family Member Type Diagnosis Age At Onset No Information Payers Payer name Insurance type Covered democrat ID Authoriza tion(s) No Information Social History Type Description Quantity Date Captured Comments Sex Female Smoking Status No Information Chief Complaint And Reason For Visit No Information Reason For Referral Reason For Referral No Information History Of Present Illness Encounter Date Complaint History Of Prese nt Illness No Information Functional Status Date Functional Assessmen t No Information Instructions Date Instruction Additional Infor mation No Information Assessments Type Assessment Date No Information Patient Care Teams Name Effective Dates (start - stop) Status Members No Information
--- NOTE | ~2025-04-24 | MR_ITS ---
EXAMINATION: MR MRCP wo/w con/w 3D wo ind DATE: 04/24/2025 08:06 INDICATION: Abnormal test TECHNIQUE: Magnetic resonance imaging (MRI) of the abdomen was performed with intravenous contrast. Sequences included coronal T2-weighted FS FSE, coronal T2- weighted FSE, axial T1-weighted LAVA, coronal FS FIESTA, axial dual-echo T1- weighted SPGR, coronal lava-FLEX, sagittal T2-weighted FSE, axial T2-weighted FSE, and axial DWI. Thick-slab T2-weighted FSE images were obtained for magnetic resonance cholangiopancreatography (MRCP). Maximum intensity projection 3-D reconstructions of the volumetric data were created by the technologist. Postcontrast sequences included coronal LAVA-flex and time course of axial T1- weighted LAVA. COMPARISON: March 06 ultrasound right upper quadrant FINDINGS: ABDOMEN MRI: Cholelithiasis noted with no wall gallbladder wall thickening or pericholecystic fluid. The adrenal glands liver pancreas spleen stomach and aorta visualized and bowel gas pattern unremarkable. Advanced degenerative changes incidentally noted in the lumbar spine. ABDOMEN MRCP: MRCP MIP images limited due to extensive motion artifact but no discrete filling defects seen. The common bile duct measures up to 8 mm it does not appear pathologically distended. Intrahepatic biliary ducts appear normal. The pancreatic duct is not well seen but does not appear significantly distended or dilated. IMPRESSION: 1. Cholelithiasis with no clearly defined filling defect or choledocholithiasis. No compelling evidence of cholecystitis. 2. Other findings as above. Reviewed, dictated and finalized at location A. OL [employer] IMPRESSION: 1. Cholelithiasis with no clearly defined filling defect or choledocholithiasis . No compelling evidence of cholecystitis. 2. Other findings as above.
--- NOTE | ~2025-04-24 | XR_ITS ---
EXAMINATION: XR chest 1V, 04/24/2025 7:02 [employer]ORER PIE [employer]AK[employer] HISTORY: R/O TISSUE EXPANDERS COMPARISON: No comparisons available. Technique: Single view. Findings: Overlying the left hemithorax there is increased density noted which may be within the soft tissues possible tissue cold header, correlation with chest CT is recommended. No pneumothorax. Heart is normal size. Mediastinal and hilar contours are within normal limits. Bony thorax no acute abnormality. Impression: Please see above Reviewed, dictated and finalized at location P. RER PIE BAKERY Impression: Please see above
--- OUTSIDE RECORDS SUMMARY | 2025-04-24 06:53 | XMS_ITS | Clinical Summary ---
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
--- OUTSIDE RECORDS SUMMARY | 2025-04-24 06:53 | XMS_ITS | Patient Health Record ---
Author Organization [facility] [employer] Address [address] [facility] [address] [facility] [address] [place] [address] Care Team Providers Care Nascar Driver Name Role Phone KathyJavier Unavailable [phone] Reason For Referral No Information Plan Of Treatment No Information
== END 2025-04-24 06:48 | disposition home or self-care (01) ==
LOC: ANHIMG 06:50
PROVIDERS: PCP Family Medicine; Visit Provider Nurse Practitioner
DX: R74.8 Abnormal levels of other serum enzymes (principal); K74.60 Unspecified cirrhosis of liver; K83.8 Other specified diseases of biliary tract
CPT/HCPCS: 71045; 74183; 76376; A9577